=== PATIENT | female | born 1940 | race Caucasian/White ===

== ENCOUNTER 2023-08-10 19:15 | Emergency (ER) | payer MEDICARE ==
[~2023-08-10] VITALS: Ht 162.6 cm; Wt 58.5 kg
[2023-08-10 19:43] VITALS: BP 179/79; PULSE 86; RESP 20
== END 2023-08-10 20:33 | disposition home or self-care (01) ==
LOC: EDH 19:15
DX: R05.9 Cough, unspecified (principal); E78.00 Pure hypercholesterolemia, unspecified; E03.9 Hypothyroidism, unspecified

== ENCOUNTER 2024-07-22 10:08 | Emergency (ER) | payer MEDICARE ==
[~2024-07-22] VITALS: Ht 162.6 cm; Wt 59.0 kg
[2024-07-22] MEDS: dexaMETHasone SOD PHOSPHATE 4 MG/ML 1ML VIAL IM ONE (10:43)
[2024-07-22] MEDS ORDERED: LORA10TA7 PO (10:46)
[2024-07-22] MEDS ORDERED: METH4TAB3 PO (10:46)
[2024-07-22 11:12] VITALS: BP 138/80; PULSE 72; RESP 18; TEMP 98.2; O2SAT 98
== END 2024-07-22 11:38 | disposition home or self-care (01) ==
LOC: EDH 10:08
DX: L29.9 Pruritus, unspecified (principal); E78.00 Pure hypercholesterolemia, unspecified; E03.9 Hypothyroidism, unspecified; Z98.890 Other specified postprocedural states
CPT/HCPCS: 99283; 96372; J1100